=== PATIENT | male | born 1980 | race Two or more races ===

== ENCOUNTER 2024-04-21 08:46 | Outpatient (CLI) | payer BC | END 2024-04-22 08:47 | disposition home or self-care (01) | LOC: CSHSLEEP 08:46 | PROVIDERS: ATTEND Family Medicine | DX: G47.33 Obstructive sleep apnea (adult) (pediatric) (principal); R53.83 Other fatigue | CPT/HCPCS: 95800 ==

== ENCOUNTER 2024-04-30 08:28 | Outpatient (CLI) | payer BC | END 2024-04-30 08:29 | disposition home or self-care (01) | LOC: CSHSLEEP 08:28 | PROVIDERS: ATTEND Family Medicine | DX: G47.33 Obstructive sleep apnea (adult) (pediatric) (principal); R53.83 Other fatigue | CPT/HCPCS: 95810 ==